=== PATIENT | male | born 1975 | race Caucasian/White ===

== ENCOUNTER 2018-01-26 17:43 | Emergency (ER) | payer SELFPAY ==
--- NOTE | 2018-01-26 17:45 | EDM.PDOC ---
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 apparently he had been seizure free in the interim he is walking up some steps on the location and had a seizure falling to his back back coworkers know to at least minutes of seizure activity , EMS was called initially he refused transfer and was going to ride into town with his coworkers Then had another seizure and ambulance was called again, seizure activity lasting for less than a minute on the second episode no seizure activity on arrival Patient is alert and oriented no fever nausea vomiting chills sweats no chest pain shortness breath headache dizziness palpitation no bowel or urine symptoms Review of systems: As per history of present illness and below otherwise all systems reviewed and negative. Past medical history: As per history of present illness and as reviewed below otherwise noncontributory. Surgical history: As per history of present illness and as reviewed below otherwise noncontributory. Social history: No reported history of drug or alcohol abuse. Family history As per history of present illness and as reviewed below otherwise noncontributory. Physical exam: HEENT: Atraumatic, normocephalic, pupils reactive, negative for conjunctival pallor or scleral icterus, mucous membranes moist, throat clear, neck supple, nontender, trachea midline. Lungs: Clear to auscultation, breath sounds equal bilaterally, chest nontender. Heart: S1S2, regular, negative for clicks, rubs, or JVD. Abdomen: Soft, nondistended, nontender. Negative for masses or hepatosplenomegaly. Negative for costovertebral tenderness. Pelvis: Stable nontender. Genitourinary: Deferred. Rectal: Deferred. Extremities: Atraumatic, negative for cords or calf pain. Neurovascular unremarkable. Neuro: Awake, alert, oriented. Cranial nerves II through XII unremarkable. Cerebellum unremarkable. Motor and sensory unremarkable throughout. Exam nonfocal. Diagnostics: []CBC CMP troponin EKG magnesium Level UA drug screen Head CT Chest 1 view Therapeutics: [] Valium 5 mg IV Normal saline 1 25 mL per hour Patient sign no shift change to follow lab and redirected Impression: [] seizure seizure disorder Definitive disposition and diagnosis as appropriate pending reevaluation and review of above. - Related Data Allergies Allergy/AdvReac Type Severity Reaction Status Date / Time No Known Allergies Allergy Verified 01/26/18 17:49 Home Meds: Home Meds levETIRAcetam [Keppra] 500 mg PO BID 01/26/18 [History] Course - Vital Signs Last Recorded V/S: Last Vital Signs Temp 99.1 F 01/26/18 17:49 Pulse 82 01/26/18 17:49 Resp 18 01/26/18 17:49 BP 144/85 H 01/26/18 17:49 Pulse Ox 94 L 01/26/18 17:49 - Orders/Labs/Meds Orders: Active Orders 24 hr Category Date Time Status Chest 1V Frontal [CR] Stat Exams 01/26/18 17:46 Taken Head wo Cont [CT] Stat Exams 01/26/18 17:46 Taken LEVETIRACETAM, S [REF] Stat Lab 01/26/18 18:04 Received Labs: Laboratory Tests 01/26/18 01/26/18 01/26/18 Range/Units 18:04 18:04 18:57 WBC 7.44 (4.0-11.0) K/uL RBC 3.81 L (4.50-5.90) M/uL Hgb 13.4 (13.0-17.0) g/dL Hct 38.3 (38.0-50.0) % MCV 100.5 H (80.0-98.0) fL MCH 35.2 H (27.0-32.0) pg MCHC 35.0 (31.0-37.0) g/dL RDW Std Deviation 45.7 (28.0-62.0) fl RDW Coeff of Ga 13 (11.0-15.0) % Plt Count 128 L (150-400) K/uL MPV 9.80 (7.40-12.00) fL Neut % (Auto) 79.5 (48.0-80.0) % Lymph % (Auto) 8.6 L (16.0-40.0) % Coffey % (Auto) 9.8 (0.0-15.0) % Eos % (Auto) 1.7 (0.0-7.0) % Baso % (Auto) 0.4 (0.0-1.5) % Neut # (Auto) 5.9 H (1.4-5.7) K/uL Lymph # (Auto) 0.6 (0.6-2.4) K/uL [place]offey # (Auto) 0.7 (0.0-0.8) K/uL Eos # (Auto) 0.1 (0.0-0.7) K/uL Baso # (Auto) 0.0 (0.0-0.1) K/uL Nucleated RBC % 0.0 /100WBC Nucleated RBCs # 0 K/uL Sodium 134 L (136-148) mmol/L Potassium 4.3 (3.5-5.1) mmol/L Chloride 99 (98-107) mmol/L Carbon Dioxide 23.6 (21.0-32.0) mmol/L BUN 8 (7.0-18.0) mg/dL Creatinine 0.9 (0.8-1.3) mg/dL Est Cr Clr Drug Dosing 113.88 mL/min Estimated GFR (MDRD) > 60.0 ml/min Glucose 114 H (74-106) mg/dL Calcium 9.9 (8.5-10.1) mg/dL Magnesium 2.2 (1.8-2.4) mg/dL Total Bilirubin 1.3 H (0.2-1.0) mg/dL AST 174 H (15-37) IU/L ALT 155 H (14-63) IU/L Alkaline Phosphatase 52 (46-116) U/L Ammonia 30 (19-54) ug/dL Troponin I < 0.050 (0.000-0.056) ng/mL Total Protein 7.7 (6.4-8.2) g/dL Albumin 4.6 (3.4-5.0) g/dL Globulin 3.1 (2.0-3.5) g/dL Albumin/Globulin Ratio 1.5 (1.3-2.8) Urine Color Urine Appearance Urine pH (5.0-8.0) Ur Specific [place] (1.001-1.035) Urine Protein (NEGATIVE) mg/dL Urine Glucose (UA) (NEGATIVE) mg/dL Urine Ketones (NEGATIVE) mg/dL Urine Occult Blood (NEGATIVE) Urine Nitrite (NEGATIVE) Urine Bilirubin (NEGATIVE) Urine Urobilinogen (<2.0) EU/dL Ur Leukocyte Esterase (NEGATIVE) Urine RBC (0-2/HPF) Urine WBC (0-5/HPF) Ur Epithelial Cells (NONE-FEW) Urine Bacteria (NEGATIVE) Urine Opiates Screen (NEGATIVE) Ur Oxycodone Screen (NEGATIVE) Urine Methadone Screen (NEGATIVE) Ur Barbiturates Screen (NEGATIVE) Ur Phencyclidine Scrn (NEGATIVE) Ur Amphetamine Screen (NEGATIVE) U Methamphetamines Scrn (NEGATIVE) U Benzodiazepines Scrn (NEGATIVE) U Cocaine Metab Screen (NEGATIVE) U Marijuana (THC) Screen (NEGATIVE) 01/26/18 01/26/18 Range/Units 19:04 19:04 WBC (4.0-11.0) K/uL RBC (4.50-5.90) M/uL Hgb (13.0-17.0) g/dL Hct (38.0-50.0) % MCV (80.0-98.0) fL MCH (27.0-32.0) pg MCHC (31.0-37.0) g/dL RDW Std Deviation (28.0-62.0) fl RDW Coeff of Ga (11.0-15.0) % Plt Count (150-400) K/uL MPV (7.40-12.00) fL Neut % (Auto) (48.0-80.0) % Lymph % (Auto) (16.0-40.0) % [place]offey % (Auto) (0.0-15.0) % Eos % (Auto) (0.0-7.0) % Baso % (Auto) (0.0-1.5) % Neut # (Auto) (1.4-5.7) K/uL Lymph # (Auto) (0.6-2.4) K/uL [place] # (Auto) (0.0-0.8) K/uL Eos # (Auto) (0.0-0.7) K/uL Baso # (Auto) (0.0-0.1) K/uL Nucleated RBC % /100WBC Nucleated RBCs # K/uL Sodium (136-148) mmol/L Potassium (3.5-5.1) mmol/L Chloride (98-107) mmol/L Carbon Dioxide (21.0-32.0) mmol/L BUN (7.0-18.0) mg/dL Creatinine (0.8-1.3) mg/dL Est Cr Clr Drug Dosing mL/min Estimated GFR (MDRD) ml/min Glucose (74-106) mg/dL Calcium (8.5-10.1) mg/dL Magnesium (1.8-2.4) mg/dL Total Bilirubin (0.2-1.0) mg/dL AST (15-37) IU/L ALT (14-63) IU/L Alkaline Phosphatase (46-116) U/L Ammonia (19-54) ug/dL Troponin I (0.000-0.056) ng/mL Total Protein (6.4-8.2) g/dL Albumin (3.4-5.0) g/dL Globulin (2.0-3.5) g/dL Albumin/Globulin Ratio (1.3-2.8) Urine Color YELLOW Urine Appearance CLEAR Urine pH 6.0 (5.0-8.0) Ur Specific [place] 1.020 (1.001-1.035) Urine Protein TRACE (NEGATIVE) mg/dL Urine Glucose (UA) NEGATIVE (NEGATIVE) mg/dL Urine Ketones TRACE H (NEGATIVE) mg/dL Urine Occult Blood MODERATE (NEGATIVE) Urine Nitrite NEGATIVE (NEGATIVE) Urine Bilirubin NEGATIVE (NEGATIVE) Urine Urobilinogen 0.2 (<2.0) EU/dL Ur Leukocyte Esterase NEGATIVE (NEGATIVE) Urine RBC 0-2 (0-2/HPF) Urine WBC 0-3 (0-5/HPF) Ur Epithelial Cells FEW (NONE-FEW) Urine Bacteria RARE (NEGATIVE) Urine Opiates Screen NEGATIVE (NEGATIVE) Ur Oxycodone Screen NEGATIVE (NEGATIVE) Urine Methadone Screen NEGATIVE (NEGATIVE) Ur Barbiturates Screen NEGATIVE (NEGATIVE) Ur Phencyclidine Scrn NEGATIVE (NEGATIVE) Ur Amphetamine Screen NEGATIVE (NEGATIVE) U Methamphetamines Scrn NEGATIVE (NEGATIVE) U Benzodiazepines Scrn NEGATIVE (NEGATIVE) U Cocaine Metab Screen NEGATIVE (NEGATIVE) U Marijuana (THC) Screen NEGATIVE (NEGATIVE) Meds: Medications Discontinued Medications Generic Name Dose Route Start Last Admin Trade Name Freq PRN Reason Stop Dose Admin Diazepam 5 mg 01/26/18 17:46 01/26/18 18:01 Valium IV 01/26/18 17:47 5 mg ONETIME ONE Administration Sodium Chloride 1,000 mls @ 999 mls/hr 01/26/18 17:46 01/26/18 18:00 Normal Saline IV 01/26/18 18:46 999 mls/hr STAT ONE Administration Departure - Departure Disposition: Home, Self-Care 01 Clinical Impression: Seizure - Discharge Information Referrals: PCP,None [Primary Care Provider] - Additional Instructions: My general discharge The following information is given to patients seen in the emergency department who are being discharged to home. This information is to outline your options for follow-up care. We provide all patients seen in our emergency department with a follow-up referral. The need for follow-up, as well as the timing and circumstances, are variable depending upon the specifics of your emergency department visit. If you don't have a primary care physician on staff, we will provide you with a referral. We always advise you to contact your personal physician following an emergency department visit to inform them of the circumstance of the visit and for follow-up with them and/or the need for any referrals to a consulting specialist. The emergency department will also refer you to a specialist when appropriate. This referral assures that you have the opportunity for follow-up care with a specialist. All of these measure are taken in an effort to provide you with optimal care, which includes your follow-up. Under all circumstances we always encourage you to contact your private physician who remains a resource for coordinating your care. When calling for follow-up care, please make the office aware that this follow-up is from your recent emergency room visit. If for any reason you are refused follow-up, please contact the [facility] Emergency Department at and asked to speak to the emergency department charge nurse. [facility] Specialty Care - Neurology Professional Building [address] [place] [address], [address] [place] [address] [facility] Primary Care [facility] [place] [id number] Please call and follow-up with primary care provider as well as neurology. We have contacted neurology and they are expecting a call. Be sure to tell them that you're seen in the emergency department and they wish for you to be seen as soon as possible. Take Keppra 1-1/2 tabs twice daily as prescribed. Return to emergency department if any new or worsening symptoms. <Femi Cameron - Last Filed: 01/26/18 19:37> ED HPI GENERAL MEDICAL PROBLEM - General Source of Information: Reports: Patient History Limitations: Reports: No Limitations - History of Present Illness INITIAL COMMENTS - FREE TEXT/NARRATIVE: Dr. Cameron taking over patient care at 1900 hrs. I've been thoroughly briefed on the patient and reviewed all labs as well as radiological findings. I personally examined the patient and agree with the above. CBC, CMP, colon, chest x-ray, CT head unremarkable. Urinalysis as well as urine drug screen pending. Urinalysis and urine drug screen were negative. In talking with the patient he was only taking 1-1/2 tabs of his Keppra on a daily basis instead of 1-1/2 tabs twice daily. This was a decrease from what he was taking which was 1 tab twice daily. He misunderstood the label and most likely this was part of the reason why he had a seizure today. He has had no other seizure activity since his been here and all labs above were negative. I did set the patient up follow-up care with a primary care provider as well as neurology. I instructed him to take the prescribed one half tabs twice daily which he states he will do. He should follow-up with them and return to emergency department if he has any new or worsening symptoms. ED ROS GENERAL - Review of Systems Review Of Systems: ROS reveals no pertinent complaints other than HPI. ED EXAM, GENERAL - Physical Exam Exam: See Below Departure - Departure Time of Disposition: 19:36 Condition: Good
[2018-01-26] MEDS ORDERED: diazePAM 5 MG/ML MDV IV ONE (17:46)
[2018-01-26] MEDS ORDERED: Sodium Chloride 0.9% 1,000 ML IV ONE (17:46)
[2018-01-26 18:35] LABS: CHLORIDE,CL 99 mmol/L (98-107); SODIUM,NA 134 mmol/L (136-148)
--- NOTE | 2018-01-27 09:57 | CT ---
EXAM DATE: 01/26/18 PATIENT'S AGE: 42 Patient: MARY HARVEY Facility: [place], [place] Site . Site : 1975 Study: CT Head wo cont [id number]/27/2018 6:26:17 PM Ordering Physician: Sergey Rod Final Report: INDICATION: Seizures TECHNIQUE: CT head without contrast. COMPARISON: None FINDINGS: CSF spaces: Within normal limits for age. Brain parenchyma: The quevedo-white differentiation is normal. No sign of mass, hemorrhage, or midline shift. Skull and calvarium: Mild mucosal thickening involving the ethmoid air cells. The visualized orbits are grossly unremarkable. No skull fractures. IMPRESSION: No gross intracranial abnormalities. Mild mucosal thickening involving the ethmoid air cells. Dictated by Justin De La Garza MD @ 01/26/2018 6:30:17 PM Please note that all CT scans at this facility use dose modulation, iterative reconstruction, and/or weight-based dosing when appropriate to reduce radiation dose to as low as reasonably achievable. Dictated by: Justin De La Garza MD @ 01/26/2018 18:30:24 (Electronic Signature) Report Signed by Proxy. [facility]
--- NOTE | 2018-01-27 09:58 | CR ---
EXAM DATE: 01/26/18 PATIENT'S AGE: 42 Patient: MARY HARVEY Facility: [place], [place] Site . Site : 1975 Study: XRay Chest [id number]/27/2018 6:26:40 PM Ordering Physician: Sergey Rod Final Report: INDICATION: 2 SEIZURES TODAY TECHNIQUE: Chest 1 view. COMPARISON: None. FINDINGS: Cardiovascular and mediastinum: Heart size and vasculature are normal in caliber and appearance. Mediastinum is within normal limits. Lungs and pleural space: Lungs are clear. No sign of infiltrate or mass. No sign of pleural effusion. No pneumothorax. Bones and soft tissues: No significant findings. IMPRESSION: Unremarkable chest. Dictated by: Justin De La Garza MD @ 01/26/2018 18:27:38 (Electronic Signature) Report Signed by Proxy. [facility]ENTER[facility]rian
== END 2018-01-26 19:45 | disposition home or self-care (01) ==
LOC: MW.ED 17:43
DX: G40.909 Epilepsy, unspecified, not intractable, without status epilepticus (principal)
CPT/HCPCS: 36415; 70450; 71045; 80053; 80177; 80305; 81001; 82140; 83735; 84484; 85025; 96361; 96374; 99284; A9270; J7040; 99283